=== PATIENT | female | born 1935 | race Caucasian/White ===

== ENCOUNTER → 2017-09-26 | Outpatient (CLI) | payer OTHER ==
[~2017-09-26] MED LIST: AMLO2.5T OR; ATOR20TA15 PO; CARD240C6 PO; CART120C PO; CARV6.252 PO; COUM4TAB PO; ECASA81 PO; HYDR-3366 PO; LEVO.05 PO; LEVO50TA4 PO; LISI-515 PO; LORT5TAB PO; OMEP20TA93 PO; SERT-129 PO; TIZA4CAP3 PO; VITATAB56 PO
== END ==
LOC: CPRE 12:35
PROVIDERS: ATTEND Neurological Surgery
DX: Z01.812 Encounter for preprocedural laboratory examination (principal); M48.062 Spinal stenosis, lumbar region with neurogenic claudication
CPT/HCPCS: 87640; 87641

== ENCOUNTER → 2017-10-04 | Day surgery (SDC) | payer OTHER ==
--- NOTE | 2017-10-03 18:40 | MH ---
cc: Andreas Waterman DATE OF ADMISSION: 10/04/2017 ADMITTING DIAGNOSIS: Lumbar spinal stenosis. HISTORY OF PRESENT ILLNESS: This is an 82-year-old female who presented to us for evaluation of pain in her legs that she has had for 2 years. She states the pain is in the lateral aspect of the legs and into the top of the foot, left more than right, although it alternates legs and currently has been affected more in the right leg. She also complains of mid back pain also. She states that she can walk, but her balance is off and she has to lean on a cart. She says when she is doing dishes or cleaning the counter, she has to lean on the counter. She has fallen secondary to her balance. She states that she has a history of colon cancer and has diarrhea from this. She states she has urinary incontinence secondary to not being able to get to the bathroom fast enough. She has had physical therapy during the summer of 2016. She states that she seldom gets paresthesias in the lower extremities. She has not had any pain management. PAST MEDICAL HISTORY: Significant for hypertension, hyperlipidemia, hypothyroidism, gastroesophageal reflux disease, anxiety, atrial fibrillation. CURRENT MEDICATIONS: She is on atorvastatin 20 mg at bedtime, Cartia 240 mg extended release, levothyroxine 50 mcg daily, omeprazole 20 mg p.o. daily, lisinopril 20 mg at bedtime, Coumadin, tizanidine 4 mg, sertraline 100 mg. ALLERGIES: SHE IS ALLERGIC TO PLAVIX, WHICH CAUSES FACIAL SWELLING. FAMILY HISTORY: Her mother had heart disease, at 86. Her father has respiratory disease. Her sister at 64 of kidney cancer. She has a daughter who has a history of headaches. SOCIAL HISTORY: She is a former smoker over 40 years ago. PAST SURGICAL HISTORY: Significant for bowel surgery and partial mastectomy. PHYSICAL EXAMINATION: HEAD: Normocephalic, atraumatic. NECK: Supple. No carotid bruits heard on auscultation. LUNGS: Clear to auscultation bilaterally. HEART: Irregular. No murmurs. ABDOMEN: Soft, nontender, positive bowel sounds. SKIN: Reveals no cyanosis or erythema. MUSCULOSKELETAL: She has 5/5 strength in her lower extremities. NEUROLOGIC: She is awake, alert and oriented. Cranial nerves 2-12 appear grossly intact. Speech is fluent. Comprehension is good. She has very brisk reflexes in the lower extremities. Sensation is intact in the lower extremities. ASSESSMENT: An 82-year-old female with chronic mid thoracic and lower cervical pain, as well as lower extremity pain, which has limited her activity status, as well as daily living, as well as ambulatory status. She has failed physical therapy. An MRI from 05/11/2017, reveals severe spinal stenosis at L4-L5 with a grade I spondylolisthesis. There is also degenerative disk disease with endplate changes and L5-S1 as well as T12-L1 and T11-T12 levels. PLAN: We have discussed the treatment options with the patient and her daughter, and they are requesting that we proceed with surgical intervention. Dr. Workman has recommended an L4-L5 decompressive laminectomy. The procedure as well as the risks, benefits, alternatives and recovery time were explained and agreed to with the patient. We have discussed the risks of surgery include, but are not limited to, bleeding, infection, muscle weakness, voice hoarseness, difficulty swallowing, heart attack, stroke, blood clots, among others. The patient states that she understands the procedure as well as the risks involved and she was therefore scheduled accordingly. MOODY Mclaughlin MD ESP/MARILYN , 06:04 PM , 06:39 PM
[~2017-10-04] VITALS: Ht 160 cm; Wt 70.9 kg
[~2017-10-04] MED LIST changes: +ACETAMINOPHEN 1000 MG/100 ML 100 ML IV ONE; +ACETAMINOPHEN/HYDROcodone 325 MG/10 MG TAB PO PRN; -AMLO2.5T OR; +BUPIVACAINE/EPINEPHRINE 0.5% PF 30 ML VIAL ONE; -CARD240C6 PO; +CHLORHEXIDINE GLUCONATE 2 % 1 PACK (2 CLOTHS) TOPICAL PRN; +DO NOT ADM ANY ANTICOAGULANT DRUGS PRN; +GELFOAM SIZE 100 ONE; +GLYCOPYRROLATE 1 MG/5 ML SYRINGE IV PUSH ONE; +LACTATED RINGER'S 1000 ML IV PRN; -LEVO.05 PO; +LIDOCAINE HCL 1% PF 5 ML SYRINGE OTHER ONE; -LORT5TAB PO; +METOPROLOL TARTRATE 25 MG TAB PO PRN; +MIDAZOLAM HCL 2 MG/2 ML VIAL ONE; +MORPHINE SULFATE 4 MG/ML INJ IV PUSH PRN; +NEOSTIGMINE 5 MG/5 ML SYRINGE IV PUSH ONE; +ONDANSETRON HCL 4 MG/2 ML VIAL IV PUSH ONE; +POVIDONE IODINE 5% (ANTISEPSIS KIT) 4 APPLICATIONS EACH NARE PRN; +PROPOFOL 200 MG/20 ML AMP IV ONE; +ROCURONIUM INJ 50 MG/5 ML SYRINGE IV PUSH ONE; +SODIUM CHLOR 0.9% 1000 ML INJ 1,000 ML IV SCH; +SODIUM CHLOR 0.9% 250 ML INJ 250 ML ONE; +SODIUM CHLORID 0.9% 500 ML IV PRN; +STERILE WATER FOR INJECTION 20 ML VIAL ONE; +THROMBIN (TOPICAL) 5,000 UNIT VIAL ONE; +VANCOMYCIN 1 GM/200 ML PREMIX ON-CALL IV SCH; +VANCOMYCIN HCL 1000 MG VIAL ONE; +ePHEDrine/NS 25 MG/5 ML SYRINGE IV ONE; +methylPREDNISolone ACETATE 40 MG/ML VIAL ONE
--- NOTE | 2017-10-04 11:23 | PD.OP ---
Forrest Howe MD Operative Report Date of Surgery: October 04, 2017 Preoperative Diagnosis: Severe L3-4 and L4-4 spinal stenosis from facet and ligamentum flavum hypertrophy with associated back pain and neurogenic claudication Postoperative Diagnosis: Same Procedure: Bilateral lumbar L3, L4 and L5 decompressive laminectomies with medial facetectomies; microsurgical technique Anesthesia: General endotracheal by Xiomara rosenberg Surgeon: Bin Workman MD Physical Therapist Aide(s): Fely Huggins Operation and Findings: Following administration of general endotracheal anesthesia, patient received vancomycin 1 g intravenously. Sequential compression devices were placed for DVT prophylaxis. She was then turned in prone position on David frame and the Leighton table and all pressure points adequately padded. The lumbar region was then shaved and prepped with a Betadine and ChloraPrep. Sterile draping undertaken with Ioban. Midline incision overlying the L3-L4 levels was then made after infiltrating the skin with 0.5% Marcaine with epinephrine solution. The skin incision was made extending down through the fascia and then using the subperiosteal plane on the left side the muscular attachments to the spinous process and lamina were detached. Intraoperative fluoroscopy was used for level confirmation and further dissection undertaken using microtechnique with microscope magnification. Severe L3-4 and L4-5 spinal stenosis from hypertrophied facets and ligamentum flavum was encountered and the inferior portion of the left L3, L4, and superior portion of the L5 lamina was then drilled out and the underlying ligamentum flavum also removed. There was severe facet arthropathy noted in the medial portion of facet was also resected and the lateral recess decompressed. With gentle thecal sac retraction the hypertrophied ligamentum flavum and facet the right L3-L5 levels also decompressed and resected for circumferential spinal canal decompression. Epidural venous stasis which he with the bipolar cautery along with Gelfoam and thrombin and bone wax used at the laminotomy edges for hemostasis. The area was then copiously irrigated with antibiotic solution. Depo-Medrol 40 mg also injected in the epidural space and the retractors removed and the muscle fascia proximal using 2-0 Vicryl interrupted stitches. 3-0 Vicryl subcuticular stitches were also placed in an interrupted fashion and planned skin closure was with Mastisol and Steri-Strips. A sterile dressing was then applied and the patient then turned in the supine position and extubated and taken to recovery room in stable condition. There were no intraoperative complications and all sponge and needle count was correct at the end of the procedure. Estimated blood loss about 20 cc. Bin Workman MD October 04, 2017 11:23
--- NOTE | 2017-10-04 11:57 | RADRPT ---
EXAM DATE/TIME: 10/04/2017 09:14 [facility] COMPARISON: No previous studies available for comparison. INDICATIONS : L3-L4 and L4-L5 lumbar laminectomy. Level localization. MEDICAL HISTORY : None. SURGICAL HISTORY : None. ENCOUNTER: Initial ACUITY: 1 day PAIN SCORE: Non-responsive. LOCATION: Lumbar spine. FINDINGS: A single lateral view of the lumbar spine was performed. Surgical instruments are projected over the posterior elements of L3 and-4-5. CONCLUSION: 1. Surgical changes as above. Al Finch MD on October 04, 2017 at 11:54 Board Certified Radiologist. This report was verified electronically.
[2017-10-04 13:30] VITALS: BP 157/61; PULSE 54; RESP 16; TEMP 97.7; O2SAT 97
== END | disposition home or self-care (01) ==
LOC: HSDC 06:06
PROVIDERS: ATTEND Neurological Surgery
DX: M48.061 Spinal stenosis, lumbar region without neurogenic claudication (principal); I10 Essential (primary) hypertension; Z79.01 Long term (current) use of anticoagulants
CPT/HCPCS: 00630; 63030; 63035; 72020; 76000; 85610; J0131; J1030; J2250; J2405; J2710; J3010; J3370; J7050; J7120